=== PATIENT | female | born 1990 | race Caucasian/White ===

== ENCOUNTER → 2017-08-27 | Outpatient (CLI) | payer MEDICAID | LOC: FIMAGING 09:32 → EDBD 09:45 | PROVIDERS: ATTEND Family Medicine | DX: O09.92 Supervision of high risk pregnancy, unspecified, second trimester (principal); O99.332 Smoking (tobacco) complicating pregnancy, second trimester; F17.210 Nicotine dependence, cigarettes, uncomplicated; Z3A.20 20 weeks gestation of pregnancy ==

== ENCOUNTER → 2017-11-29 | Outpatient (CLI) | payer MEDICAID | LOC: FIMAGING 13:48 | DX: O09.92 Supervision of high risk pregnancy, unspecified, second trimester (principal); Z3A.33 33 weeks gestation of pregnancy ==

== ENCOUNTER → 2017-12-20 | Outpatient (CLI) | payer MEDICAID | LOC: FIMAGING 13:38 | PROVIDERS: ATTEND Family Medicine | DX: Z34.03 Encounter for supervision of normal first pregnancy, third trimester (principal); Z87.891 Personal history of nicotine dependence; Z3A.36 36 weeks gestation of pregnancy ==